=== PATIENT | female | born 1955 | race Caucasian/White ===

== ENCOUNTER → 2016-09-23 | Outpatient (CLI) | payer MEDICARE ==
[~2016-09-23] MED LIST: ADULT LOW DOSE81 MG PO; DICLOFENAC SODI50 MG PO; FENOFIBRATE160 MG PO; FERROUS SULFAT325 MG PO; FUROSEMIDE20 MG PO; GLUCOPHAGE1000 MG PO; KEPPRA750 MG PO; KLONOPIN TAB 00.5 MG PO; KLOR-CON M2020 MEQ PO; LISINOPRIL10 MG PO; LOPRESSOR 25 MG25 MG PO; NITROSTAT 0.40.4 MG SL; PERCOCET 5/325 T1 EA PO; PROTONIX40 MG PO; RANEXA1000 MG PO; TRAZODONE HCL150 MG PO; TRAZODONE HCL50 MG PO; VIT D PO
== END ==
LOC: MAMO 10:30
DX: Z12.31 Encounter for screening mammogram for malignant neoplasm of breast (principal); Z90.710 Acquired absence of both cervix and uterus
CPT/HCPCS: G0202

== ENCOUNTER → 2020-11-18 | Outpatient (CLI) | payer MEDICARE ==
[~2020-11-18] MED LIST changes: +AMBIEN10 MG PO; +LIPITOR TAB 2020 MG PO; +LOVENOX40 MG/0.4 SQ; +NOVOLOG100 UNIT/1 SC; +PERCOCET 5-3251 EACH PO; +TRILEPTAL600 MG PO; +ULTRAM50 MG PO; +VENLAFAXINE HCL75 M1 PO
== END ==
LOC: KOH-I 09:42
DX: R10.9 Unspecified abdominal pain (principal); R93.3 Abnormal findings on diagnostic imaging of other parts of digestive tract; Q44.7 Other congenital malformations of liver; R91.1 Solitary pulmonary nodule
CPT/HCPCS: 74176

== ENCOUNTER → 2021-02-23 | Outpatient (CLI) | payer MEDICARE | LOC: ECHO 12:08 | DX: I34.0 Nonrheumatic mitral (valve) insufficiency (principal); I10 Essential (primary) hypertension | CPT/HCPCS: ECHO; 93306 ==